=== PATIENT | male | born 1995 | race Caucasian/White ===

== ENCOUNTER 2018-11-04 18:31 | Emergency (ER) | payer SELFPAY ==
[~2018-11-04] VITALS: Ht 162.6 cm; Wt 61.2 kg
--- OUTSIDE RECORDS SUMMARY | 2018-11-04 18:48 | XMS REPORT ---
Author SHERIF Weinberg Organization [employer] Address Unknown Phone Unavailable Care Team Providers Care Special Procedures Tech Name Role Phone SHERIF HIGH CP Unavailable Allergies, Adverse Reactions, Alerts Substance Reaction Event Type N.K.D.A. Info Not Available Non Drug Allergy Problems Problem Type Condition Code Onset Dates Condition Status Assessment Acute pain of right shoulder M25.511 Active Medications Medication Code System Code Instructions Start Date End Date Status Dosage Tylenol 8 Hour [facility] [address]-47 650 MG Orally every 8 hrs 2 tablets as needed Ibuprofen [facility] [address]-12 200 MG Orally every 6 hrs 2 tablet as needed Procedures Procedure Coding System Code Date Office Visit, Est Pt., Level 3 CPT-4 67011 November 25, 2015 Vital Signs Date/Time: November 25, 2015 Cardiac Monitoring Heart Rate 92 bpm Weight 145.6 lbs Height 5'5" in BMIPercentile 71.66 % Wt Percentile 40.14 % Blood Pressure Diastolic 76 mmHg Blood Pressure Systolic 124 mmHg Results No Known Results Summary Purpose [employer] Submission
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
--- NOTE | 2018-11-04 19:05 | Diagnostic Imaging Report ---
INDICATION: Right shoulder pain after a fall. EXAMINATION: Right shoulder dated 11/04/2018. Three views of the right shoulder. FINDINGS: There is no evidence for an acute fracture or dislocation. The joint spaces are well maintained. There is no significant soft tissue swelling. IMPRESSION: No acute process. Dictated by: Dictated on workstation # [id number]
[2018-11-04] MEDS ORDERED: TRAM50TA2 PO (19:10)
[2018-11-04 19:13] VITALS: BP 122/66
== END 2018-11-04 19:13 | disposition home or self-care (01) ==
LOC: ER FS 18:33
DX: S40.011A Contusion of right shoulder, initial encounter (principal); F12.10 Cannabis abuse, uncomplicated; F17.210 Nicotine dependence, cigarettes, uncomplicated; Z90.89 Acquired absence of other organs; V48.5XXA Car driver injured in noncollision transport accident in traffic accident, initial encounter
CPT/HCPCS: 73030